=== PATIENT | male | born 1950 | race African-American/Black ===

== ENCOUNTER 2017-11-18 21:13 | Emergency (ER) | payer MEDICARE, OTHER ==
[~2017-11-18] VITALS: Ht 170.2 cm; Wt 68.0 kg
[2017-11-18 21:14] VITALS: BP 148/80
== END 2017-11-19 01:37 | disposition left against medical advice (07) ==
LOC: ER 21:37
DX: M54.5 Low back pain (principal); Z53.21 Procedure and treatment not carried out due to patient leaving prior to being seen by health care provider